=== PATIENT | male | born 1995 | race American Indian/Alaskan Native ===

== ENCOUNTER 2020-12-06 20:24 | Emergency (ER) | payer SELFPAY ==
[2020-12-06 21:24] VITALS: BP 136/86; PULSE 80; RESP 16; TEMP 35.9; O2SAT 97; BMI 19.3
[2020-12-06 21:29] VITALS: BP 133/88; RESP 16; TEMP 36.4; O2SAT 97
--- NOTE | 2020-12-06 21:31 | CTR_ITS ---
PROCEDURE INFORMATION: Exam: CT Head Without Contrast Exam date and time: 12/06/2020 9:31 PM Age: 25 years old Clinical indication: Injury or trauma; Fall; Blunt trauma (contusions or hematomas); Injury details: Skateboarding accident. PT has abrasions to the left side of his face. ; Additional info: Fall with head injury TECHNIQUE: Imaging protocol: Computed tomography of the head without contrast. Radiation optimization: All CT scans at this facility use at least one of these dose optimization techniques: automated exposure control; mA and/or kV adjustment per patient size (includes targeted exams where dose is matched to clinical indication); or iterative reconstruction. COMPARISON: No relevant prior studies available. RADIATION DOSE METRICS: Total DLP (mGy-cm): 799.63 FINDINGS: Brain: Normal. No hemorrhage. Unremarkable white matter. No mass effect. Cerebral ventricles: No ventriculomegaly. Paranasal sinuses: There is mild mucosal thickening seen within the ethmoidal sinuses bilaterally. Mastoid air cells: Visualized mastoid air cells are well aerated. Bones/joints: Unremarkable. No acute fracture. Soft tissues: Soft tissue swelling, laceration and hematoma formation seen within the left parietal scalp. CT/CT head wo con* [id number] IMPRESSION: There are no acute intracranial findings. Radiation Dose CTDIVOL = (mGy): DLP = 799.63 (mGy-cm)
--- NOTE | 2020-12-06 21:37 | W.ED.WOUNDLC ---
HPI - Wound/Laceration General: Chief Complaint: Wound/Laceration Stated Complaint: HEAD INJURY Time Seen by Provider: 12/06/20 21:30 History of Present Illness: HPI narrative: Patient is a 25-year-old male comes to the ED with head injury. Injury occurred just prior to arrival. Patient says he was skateboarding and he fell and hit left side of his head on concrete. Patient was not wearing a helmet. He thinks he had a brief moment of loss of consciousness. He has a laceration to the left parietal region of scalp. He has 2 abrasions to left side of face. Denies any headache, vision changes, neuro symptoms or neck pain. Associated symptoms: Denies chills, fever(s), nausea or vomiting Review of Systems Const: Denies: fever(s), chills or fatigue Eyes: Denies: change in vision or eye discomfort ENMT: Denies: throat pain, odynophagia, nasal discharge or nasal congestion Card: Denies: chest pain, palpitations, edema, swelling of feet/ankles, dyspnea on exertion or orthopnea Resp: Denies: dyspnea, productive cough or non-productive cough GI: Denies: abdominal pain, nausea, vomiting, diarrhea, constipation or hematochezia : Denies: flank pain, difficulty urinating, dysuria or hematuria Musc: Denies: neck pain, back pain or extremity swelling Skin/Breast: Reports: new lesions (Laceration to left parietal region of head. 2 abrasions lft side face); Denies: rash Neuro: Denies: headache(s), numbness in extremities or weakness in extremities Physical Exam Const: COMMON NORMALS: no acute distress, patient oriented x3 and alert GENERAL APPEARANCE: cooperative and comfortable HENMT: COMMON NORMALS: normocephalic HEAD & SCALP: normocephalic, contusion left parietal Head contusion size: 1 cm and laceration left parietal Details of head laceration: Y-shaped, actively bleeding (Minimal) and superficial; not contaminated Head laceration size: 3 cm; no Brown's sign and no raccoon eyes FACE & SINUS: abrasion on the left periorbital (one above eyebrow-superficial, no active bleeding ) and maxilla (superficial, no active bleeding) MOUTH: Normal oral and palatal mucosa present THROAT: posterior oropharynx normal and uvula midline Eye: COMMON NORMALS: Equal, round and reactive pupils present and conjunctivae normal CONJUNCTIVA: Yes conjunctivae normal PUPIL: Yes Equal, round and reactive pupils present Neck/C-Spine: COMMON NORMALS: supple GENERAL: Yes normal visual inspection Resp: COMMON NORMALS: normal respiratory effort, No retractions, No use of accessory muscles and clear to auscultation bilaterally AUSCULTATION: clear to auscultation bilaterally Cardio: COMMON NORMALS: regular rate, regular rhythm, S1 normal heart sound present, S2 normal heart sound present, No gallops present (Cardio), No clicks present (Cardio), No murmurs present (Cardio) and Peripheral pulses 2+ throughout RATE: regular rate RHYTHM: regular rhythm HEART SOUNDS: S1 normal heart sound present and S2 normal heart sound present PERIPHERAL PULSES: Peripheral pulses 2+ throughout GI: COMMON NORMALS: Normal to inspection, nondistended, normoactive bowel sounds present, Soft to palpation, non-tender and no masses PALPATION: Yes Soft to palpation : COMMON NORMALS: Yes no CVA tenderness BLADDER/KIDNEY EXAM: Yes no CVA tenderness Back/Pelvis: COMMON NORMALS: no CVA tenderness Extremity: COMMON NORMALS: normal to inspection Neuro: COMMON NORMALS: patient oriented x3, CN's II-XII intact bilaterally, moves all extremities, no focal motor deficits and no sensory deficits noted SENSORIUM/ORIENTATION: Yes alert SENSORY EXAM: Yes extremities (intact) MOTOR EXAM: 5/5 motor strength present throughout Skin: NARRATIVE SKIN EXAM: See HENNE section of exam for details on scalp laceration. GENERAL SKIN EXAM: dry skin Procedures Laceration Laceration 1: Site: scalp (left parietal) Size (cm): 3 Description: irregular (y shaped) Depth: simple, single layer Local Anesthetic: lidocaine 1% and with epi Amount of anesthesia used (mL): 10 Pre-repair: irrigated extensively (With normal saline.) Skin layer closed with: other (james) Size (cm): other (james) Number of sutures: 10 (james) Technique: simple, interrupted Course Vital Signs: Vital signs: Vital Signs Temperature 97.5 F L 12/06/20 22:20 Pulse Rate 98 12/06/20 22:20 Respiratory Rate 16 12/06/20 22:20 Blood Pressure 133/88 12/06/20 22:20 Pulse Oximetry 97 12/06/20 22:20 MDM - Wound/Laceration MDM Narrative: Medical decision making narrative: Patient is a 25-year-old male comes to the ED with a head injury. Patient was skateboarding and fell hitting left side of head. He has a laceration on left parietal region of scalp and 2 superficial abrasions on left side of face. Patient also has a small contusion on left parietal region of scalp as well. Denies any other symptoms. Denies any concussion symptoms. Neuro exam normal. CT of head, cervical spine and face showed no acute fractures or findings. Laceration site was irrigated extensively by the nurse with normal saline. I then used lidocaine with epinephrine as local anesthetic. 10 james were then placed to close laceration. Patient tolerated procedure well. Patient diagnosed with a laceration of scalp, contusion of head and facial abrasions. He was told to follow-up with his PCP in 7 to 10 days to get james removed. Return to ED precautions given. Patient understood and agree with plan. Imaging Data^: Other CT: Attestation: I personally reviewed and interpreted this imaging study as follows: Radiologist's impression: [employer] [address] [address] Scan Report Signed Patient: Krunal Saez Unit #: [id number] : 1995 Age/Sex: 25 / M ADM Date: 12/06/20 Loc: ER Room/Bed: Attending Dr: Ordering Provider/Ordering MD: Shlomo Burrows Date of Service: 12/06/20 Procedure(s): CT facial bones wo con* [id number] Accession Number(s): [id number] Report Number: [id number] PROCEDURE INFORMATION: Exam: CT Maxillofacial Without Contrast Exam date and time: 12/06/2020 9:36 PM Age: 25 years old Clinical indication: Injury or trauma; Blunt trauma (contusions or hematomas); Orbit/periorbital and maxilla; Patient HX: Fall from skateboard. Abrasions to left temporal and maxillary area. ; Additional info: Skateboard fall with head injury-abrasions to face. TECHNIQUE: Imaging protocol: Computed tomography images of the face without contrast. Radiation optimization: All CT scans at this facility use at least one of these dose optimization techniques: automated exposure control; mA and/or kV adjustment per patient size (includes targeted exams where dose is matched to clinical indication); or iterative reconstruction. COMPARISON: No relevant prior studies available. RADIATION DOSE METRICS: Total DLP (mGy-cm): 744.34 FINDINGS: Orbital cavity: Orbits are normal. Globes are unremarkable. Bones/joints: No acute fracture. Paranasal sinuses: Mucosal thickening is seen within the ethmoidal sinuses bilaterally. Mucosal thickening is seen within the maxillary sinuses bilaterally. Soft tissues: Unremarkable. CT/CT facial bones wo con* [id number] IMPRESSION: There are no acute osseous findings. Radiation Dose CTDIVOL = (mGy): DLP = 744.34 (mGy-cm) Dictated By: James Melgar MD Signed By: James Melgar MD Signed Date/Time: 12/06/202201 DD/ [address] [employer] [address] [address] Scan Report Signed Patient: Krunal Saez Unit #: [id number] : 1995 Age/Sex: 25 / M ADM Date: 12/06/20 Loc: ER Room/Bed: Attending Dr: Ordering Provider/Ordering MD: Shlomo Burrows Date of Service: 12/06/20 Procedure(s): CT cervical spin wo con* [id number] Accession Number(s): [id number] Report Number: [id number] PROCEDURE INFORMATION: Exam: CT Cervical Spine Without Contrast Exam date and time: 12/06/2020 9:36 PM Age: 25 years old Clinical indication: Injury or trauma; Blunt trauma; Patient HX: Fall from skateboard. ; Additional info: Skateboard fall with head injury TECHNIQUE: Imaging protocol: Computed tomography images of the cervical spine without contrast. Radiation optimization: All CT scans at this facility use at least one of these dose optimization techniques: automated exposure control; mA and/or kV adjustment per patient size (includes targeted exams where dose is matched to clinical indication); or iterative reconstruction. COMPARISON: No relevant prior studies available. RADIATION DOSE METRICS: Total DLP (mGy-cm): 508.14 FINDINGS: Bones/joints: No acute fracture. Normal alignment. Discs/Spinal canal/Neural foramina: No significant disc protrusion. No severe spinal canal stenosis. No significant neural foraminal narrowing. Lungs: Lung apices are normal. Soft tissues: Unremarkable. CT/CT cervical spin wo con* [id number] IMPRESSION: No acute findings. Radiation Dose CTDIVOL = (mGy): DLP = 508.14 (mGy-cm) Dictated By: Jaems Melgar MD Signed By: James Melgar MD Signed Date/Time: 12/06/202200 DD/ 99 CT Head: Attestation: I personally reviewed and interpreted this imaging study as follows: Radiologist's impression: [employer] [address] [address] [address] Scan Report Signed Patient: Krunal Saez Unit #: [id number] : 1995 Age/Sex: 25 / M ADM Date: 12/06/20 Loc: ER Room/Bed: Attending Dr: Ordering Provider/Ordering MD: Shlomo Burrows Date of Service: 12/06/20 Procedure(s): CT head wo con* [id number] Accession Number(s): [id number] Report Number: [id number] PROCEDURE INFORMATION: Exam: CT Head Without Contrast Exam date and time: 12/06/2020 9:31 PM Age: 25 years old Clinical indication: Injury or trauma; Fall; Blunt trauma (contusions or hematomas); Injury details: Skateboarding accident. PT has abrasions to the left side of his face. ; Additional info: Fall with head injury TECHNIQUE: Imaging protocol: Computed tomography of the head without contrast. Radiation optimization: All CT scans at this facility use at least one of these dose optimization techniques: automated exposure control; mA and/or kV adjustment per patient size (includes targeted exams where dose is matched to clinical indication); or iterative reconstruction. COMPARISON: No relevant prior studies available. RADIATION DOSE METRICS: Total DLP (mGy-cm): 799.63 FINDINGS: Brain: Normal. No hemorrhage. Unremarkable white matter. No mass effect. Cerebral ventricles: No ventriculomegaly. Paranasal sinuses: There is mild mucosal thickening seen within the ethmoidal sinuses bilaterally. Mastoid air cells: Visualized mastoid air cells are well aerated. Bones/joints: Unremarkable. No acute fracture. Soft tissues: Soft tissue swelling, laceration and hematoma formation seen within the left parietal scalp. CT/CT head wo con* [id number] IMPRESSION: There are no acute intracranial findings. Radiation Dose CTDIVOL = (mGy): DLP = 799.63 (mGy-cm) Dictated By: James Melgar MD Signed By: James Melgar MD Signed Date/Time: 12/06/202199 DD/ 58 Discharge Plan Discharge Patient Disposition: Home Clinical Impression: Laceration of scalp Qualifiers: Encounter type: initial encounter Qualified Code(s): S01.01XA - Laceration without foreign body of scalp, initial encounter Contusion of head Qualifiers: Encounter type: initial encounter Contusion of head detail: scalp Qualified Code(s): S00.03XA - Contusion of scalp, initial encounter Facial abrasion Qualifiers: Encounter type: initial encounter Qualified Code(s): S00.81XA - Abrasion of other part of head, initial encounter Condition: Stable Discharge Orders: Discharge ED (Routine); Ordered 12/06/20 Ordered By: Shlomo Burrows Discharge Diet: Regular Discharge Activity: Resume usual activity Patient Instructions: Scalp Laceration, Staple Care (ED) Activity Restrictions/Additional Instructions: Keep laceration site clean and dry for the next 48 hours. Then after that you can run water over it but do not scrub scalp or laceration. Watch for signs of infection such as redness, warmth, increased tenderness and puslike drainage. If you see the signs of infection return to the ED, urgent care or PCP for reevaluation. call your PCP to schedule a follow-up appointment for reevaluation and suture removal in about 7- 10 days. Continue taking all home meds. Follow discharge plans as discussed. You can return to the ED if symptoms worsen. Coding Level of Care Code ED [employer] for [facility] Exam Comprehensive
--- NOTE | 2020-12-06 21:58 | PC.NURSE ---
ELIZABETH SEALS, BILINGUAL OPERATOR AT BEDSIDE TO DO JOSE AND INJECT LIDOCAINE. PT REFUSED TETANUS VAX, STATED HE HAS HAD ONE IN THE LAST YEAR.
[2020-12-06 22:20] VITALS: BP 133/88; PULSE 98; RESP 16; TEMP 36.4; O2SAT 97
== END 2020-12-06 22:24 | disposition home or self-care (01) ==
PROVIDERS: Emergency Provider Physician Assistant
DX: S01.01XA Laceration without foreign body of scalp, initial encounter (principal); S00.03XA Contusion of scalp, initial encounter; S00.81XA Abrasion of other part of head, initial encounter; V00.131A Fall from skateboard, initial encounter
CPT/HCPCS: 12002; 70450; 70486; 72125; 99283

== ENCOUNTER 2021-02-08 02:06 | Emergency (ER) | payer SELFPAY ==
[2021-02-08] VITALS (8 sets, daily range): BP systolic 120–130; BP diastolic 63–89; PULSE 96–117; RESP 14–28; TEMP 37; O2SAT 96–100; BMI 25.1
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
--- NOTE | 2021-02-08 02:18 | ECG_ITS ---
[facility] Test Date: 2021-02-08 Pat Name: Krunal Saez Department: Room: Gender: Male [employer]: : 1995 Requested By: Clinton Thomas Order Number: [id number] Vonnie MD: Elaine Riley M.D. Measurements Intervals Cammal Rate: 93 P: 68 ID: [id number] QRS: 105 QRSD: 109 T: 44 QT: 354 QTc: 441 Interpretive Statements SINUS RHYTHM POSSIBLE LEFT ATRIAL ENLARGEMENT [-0.1mV P WAVE IN V1/V2] INCOMPLETE RIGHT BUNDLE BRANCH BLOCK [90+ ms QRS DURATION, TERMINAL R IN V1/V2, 40+ ms S IN I/aVL/V4/V5/V6] POSSIBLE RIGHT VENTRICULAR HYPERTROPHY [SOME/ALL OF: PROMINENT R IN V1, LATE TRANSITION, RAD, THAO, SSS] WARNING: DATA QUALITY MAY AFFECT INTERPRETATION No previous ECG available for comparison Electronically Signed On 02-09-2021 16:22:58 CDT by Elaine Riley M.D. [id number]
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
[2021-02-08 02:25] LABS: Basophils % 0.6 %; Eosinophils # 0.1 10^3/uL (0.0-0.8); Eosinophils % 1.5 %; Hematocrit 49.7 % (42.0-52.0); Hemoglobin 16.2 g/dL (11.7-16.6); Lymphocytes # 2.6 10^3/uL (0.8-4.8); Lymphocytes % 53.6 %; Mean Corpuscular HGB Conc 32.6 g/dL (30.0-36.0); Mean Corpuscular Hemoglobin 29.2 pg (28.0-34.0); Mean Corpuscular Volume 89.5 fl (80-94); Mean Platelet Volume 8.7 fL (7.4-10.4); Monocytes # 0.4 10^3/uL (0.2-0.9); Monocytes % 7.4 %; Neutrophils # 1.68 10^3/uL (1.8-7.7); Neutrophils % 35.2 %; Nucleated Red Blood Cells % 0 %; Platelet Count 295 10^3/cmm (130-400); Red Blood Count 5.55 10^6/uL (4.1-5.3); Red Cell Distribution Width 13.4 % (12.1-15.1); White Blood Count 4.8 10^3/uL (4.0-10.0)
[2021-02-08] MEDS: sodium chloride 0.9% 1,000 ML 999 ML IV (02:33)
[2021-02-08] MEDS: HYDROmorphone 1 mg/mL INJ 1 mL 0.5 MG IVP (02:33)
[2021-02-08] MEDS: tetanus-dipt-pertussis 0.5 mL SDV IM (02:33)
[2021-02-08 02:36] LABS: ABG PCO2 42.3 mmHg (35-45); Arterial Blood Gas Hematocrit 50.5 % (42-52); Base Excess ABG -5.3 mmol/L (-2.0-2.0); Blood Gas Allen Test Pos; Blood Gas Operator Identificat HARKR; Blood Gas Sample Site Radial, right; Blood Gas Sample Type Arterial; HCO3 ABG 20.9 mmol/L (22-26); Oxygen Device ROOM AIR
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
[2021-02-08 02:38] LABS: INR 0.94 (0.8-1.2)
[2021-02-08 02:48] LABS: Alanine Aminotransferase 23 U/L (0-41); Albumin Level 4.7 g/dL (3.5-5.2); Alkaline Phosphatase 85 IU/L (40-130); Anion Gap 19.2 (5-19); Aspartate Amino Transferase 47 U/L (0-40); Blood Urea Nitrogen 6 mg/dL (6-20); Calcium 7.6 mg/dL (8.5-10.5); Carbon Dioxide 22 mmol/L (22-29); Chloride 109 mmol/L (98-107); Globulin 2.9 g/dL (1.3-4.6); Glomerular Filtration Rate 137.4 mL/min (90-130); Glucose 92 mg/dL (65-115); Osmolality Calculated 299 mOsm/kg (285-295); Potassium 4.2 mmol/L (3.5-5.1); Sodium 146 mmol/L (136-145); Total Bilirubin 0.2 mg/dL (0.15-1.2); Total Protein 7.6 g/dL (6.6-8.7)
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
[2021-02-08] MEDS: iohexol 300 mg/mL 100 mL Btl IV (02:51)
[2021-02-08 02:55] LABS: Alcohol Level 347 mg/dL (0-10)
[2021-02-08 03:02] LABS: Add Urine Microscopic? YES; Amphetamines Screen Urine Negative (Negative); Barbiturates Screen Urine Negative (Negative); Benzodiazepines Screen Urine Negative (Negative); Bilirubin Urine Neg (Negative); Blood Urine 2+ (Negative); Cocaine Screen Urine Negative (Negative); Glucose Urine UA Norm (Normal); Ketones Urine Negative (Negative); Leukocyte Esterase Urine Negative (Negative); Nitrate Urine Negative (Negative); Opiate Screen Urine Negative (Negative); PCP Screen Urine Negative (Negative); Protein Urine Neg (Negative); THC Screen Urine Positive (Negative); Urine Appearance Clear (CLEAR); Urine Color Yellow (Yellow); Urobilinogen Urine Norm (Negative); pH Urine 5 (5-7)
[2021-02-08 03:03] LABS: Add Urine Culture? No; Bacteria Urine TRACE /hpf; RBC Urine 0-4 /hpf (0-2); Squamous Epithelial Cell Urine 0-4 /hpf (0-5); WBC Urine 0-4 /hpf (0-5)
[2021-02-08 03:34] LABS: Lactate (Lactic Acid level) 1.4 mmol/L (0.5-2.2)
[2021-02-08] MEDS: fentaNYL 50 mcg/mL INJ 2mL IVP (03:41)
== END 2021-02-08 06:18 | disposition home or self-care (01) ==
PROVIDERS: Nurse Practitioner Family; Emergency Provider Emergency Medicine
DX: S22.42XA Multiple fractures of ribs, left side, initial encounter for closed fracture (principal); M51.26 Other intervertebral disc displacement, lumbar region; F10.920 Alcohol use, unspecified with intoxication, uncomplicated; V09.00XA Pedestrian injured in nontraffic accident involving unspecified motor vehicles, initial encounter
CPT/HCPCS: 36600; 51702; 70450; 71045; 71260; 72125; 73060; 73090; 74177; 80053; 80306; 80307; 81001; 82803; 83605; 85025; 85610; 86850; 86900; 90471; 90715; 93005; 96361; 96374; 96375; 99284; J1170; J3010; J7030; Q9967

== ENCOUNTER → 2022-08-24 10:44 | Outpatient (BNVA) | payer OTHER, SELFPAY | PROVIDERS: Visit Provider Nurse Practitioner Family | DX: M25.532 Pain in left wrist (principal) | CPT/HCPCS: 73110 ==

== ENCOUNTER 2022-12-13 22:19 | Emergency (ER) | payer SELFPAY ==
[2022-12-13 22:24] VITALS: BP 141/97; PULSE 102; RESP 16; TEMP 36.8; O2SAT 96; BMI 23.4
--- NOTE | 2022-12-13 22:55 | W.ED.ALCOHOL ---
HPI - Alcohol General: Chief Complaint: Alcohol Stated Complaint: Alcohol Withdrawal Time Seen by Provider: 12/13/22 22:39 Source: patient Mode of arrival: ambulatory Limitations: no limitations History of Present Illness: Patient is a 27-year-old male who presents to the ED today with complaints of alcohol withdrawal symptoms including anxiety and shakiness. He states he is wanting IV fluids. Patient states he is a longstanding alcoholic drinking a minimum of a 12 pack of beer daily. He states his last drink prior to arrival was several hours ago. Patient states he does not want hospitalization and does not really give me a straight answer when I asked him whether he is interested in an inpatient detox facility program. He denies drug use. States he just wants something for his shakiness at the moment. MD complaint: alcohol withdrawal Last drink: Hours (ago) Chronic alcohol use: Yes Previous visits for alcohol intoxication: Yes Recent trauma: No Associated symptoms: Reports no associated symptoms; Deny nausea, seizure-like activity, syncope or vomiting Treatments prior to arrival: none Review of Systems Const: Denies: fever(s), chills, body aches, fatigue or malaise Eyes: Denies: change in vision, blurry vision, photophobia, floaters or seeing flashes Card: Denies: chest pain, syncope or pre-syncope Resp: Denies: dyspnea GI: Denies: nausea, vomiting or diarrhea Neuro: Denies: headache(s), lack of coordination, difficulty walking, dizziness, confusion, behavioral changes or seizure-like activity Physical Exam Const: COMMON NORMALS: no acute distress, average body habitus, patient oriented x3, alert and well nourished GENERAL APPEARANCE: cooperative and appears older than stated age ORIENTATION/CONSCIOUSNESS: Yes awake, Yes oriented to person, Yes oriented to place and Yes oriented to time HENMT: COMMON NORMALS: normocephalic and atraumatic HEAD & SCALP: normal to inspection, normocephalic and atraumatic Resp: COMMON NORMALS: normal respiratory effort and clear to auscultation bilaterally AUSCULTATION: clear to auscultation bilaterally Cardio: COMMON NORMALS: regular rate and regular rhythm RATE: regular rate RHYTHM: regular rhythm Neuro: REKHA COMA SCALE: document GCS findings [place] coma scale eye opening: Spontaneous [place] coma scale verbal response: Orientated [place] coma scale motor response: Obey commands R[place] coma scale total score: 15 COMMON NORMALS: patient oriented x3 SENSORIUM/ORIENTATION: Yes alert, Yes oriented to person, Yes oriented to place and Yes oriented to time Course Vital Signs: Vital signs: Vital Signs Temperature 98.2 F 12/13/22 22:24 Pulse Rate 84 12/14/22 00:17 Respiratory Rate 18 12/14/22 00:17 Blood Pressure 103/62 12/14/22 00:17 Pulse Oximetry 94 12/14/22 00:17 Oxygen Delivery Me thod Room Air 12/14/22 00:17 MDM - Alcohol Medical Decision Making Patient is articulating and answering all of my questions appropriately. He is walking around in his room as well as up and down the hallway to and from the bathroom. Gait is steady and unassisted. Patient was given IV fluids as well as Ativan. He states he feels better. Basic labs obtained and are non-actionable. Alcohol is 406. Patient is surprisingly functionable at that level most likely a product of significant alcohol tolerance from years of drinking. Patient is not seeking hospitalization. I did drug abuse counselor him extensively on my recommendation for an inpatient treatment facility. He was given the name, address, and phone number of [facility]. He is agreeable to continued alcohol cessation thus I will place him on a Librium taper over the next few days. Lab Data 12/13/22 23:10 12/13/22 23:10 Laboratory Results WBC 6.9 10^3/uL (4.0-10.0) 12/13/22 23:10 RBC 5.28 10^6/uL (4.1-5.3) 12/13/22 23:10 Hgb 15.9 g/dL (11.7-16.6) 12/13/22 23:10 Hct 47.6 % (42.0-52.0) 12/13/22 23:10 MCV 90.2 fl (80-94) 12/13/22 23:10 MCH 30.1 pg (28.0-34.0) 12/13/22 23:10 MCHC 33.4 g/dL (30.0-36.0) 12/13/22 23:10 RDW 12.8 % (12.1-15.1) 12/13/22 23:10 Plt Count 266 10^3/cmm (130-400) 12/13/22 23:10 MPV 8.3 fL (7.4-10.4) 12/13/22 23:10 Neut % (Auto) 64.9 % 12/13/22 23:10 Lymph % (Auto) 26.9 % 12/13/22 23:10 [place] % (Auto) 5.8 % 12/13/22 23:10 Eos % (Auto) 1.6 % 12/13/22 23:10 Baso % (Auto) 0.4 % 12/13/22 23:10 Neut # (Auto) 4.44 10^3/uL (1.8-7.7) 12/13/22 23:10 Lymph # (Auto) 1.8 10^3/uL (0.8-4.8) 12/13/22 23:10 [place] # (Auto) 0.4 10^3/uL (0.2-0.9) 12/13/22 23:10 Eos # (Auto) 0.1 10^3/uL (0.0-0.8) 12/13/22 23:10 Baso # (Auto) 0.0 10^3/uL (0.0-0.1) 12/13/22 23:10 Nucleated RBC % (auto) 0 % 12/13/22 23:10 Nucleated RBCs # 0.0 /100WBC 12/13/22 23:10 Sodium 140 mmol/L (136-145) 12/13/22 23:10 Potassium 3.9 mmol/L (3.5-5.1) 12/13/22 23:10 Chloride 102 mmol/L (98-107) 12/13/22 23:10 Carbon Dioxide 23 mmol/L (22-29) 12/13/22 23:10 Anion Gap 18.9 (5-19) 12/13/22 23:10 BUN 5 mg/dL (6-20) L 12/13/22 23:10 Creatinine 0.7 mg/dL (0.7-1.2) 12/13/22 23:10 GFR Calculation 136.3 mL/min (90-130) H 12/13/22 23:10 Glucose 99 mg/dL (65-115) 12/13/22 23:10 Calculated Osmolality 287 mOsm/kg (285-295) 12/13/22 23:10 Calcium 8.6 mg/dL (8.5-10.5) 12/13/22 23:10 Total Bilirubin 0.2 mg/dL (0.15-1.2) 12/13/22 23:10 AST 23 U/L (0-40) 12/13/22 23:10 ALT 16 U/L (0-41) 12/13/22 23:10 Alkaline Phosphatase 73 U/L (40-130) 12/13/22 23:10 Total Protein 8.2 g/dL (6.6-8.7) 12/13/22 23:10 Albumin 4.8 g/dL (3.5-5.2) 12/13/22 23:10 Globulin 3.4 g/dL (1.3-4.6) 12/13/22 23:10 Ethyl Alcohol 406 mg/dL (0-10) H* 12/13/22 23:10 Discharge Plan Discharge Patient Disposition: Home Clinical Impression: Chronic alcohol abuse Alcoholic intoxication Qualifiers: Complication of substance-induced condition: uncomplicated Qualified Code(s): F10.920 - Alcohol use, unspecified with intoxication, uncomplicated Condition: Stable Prescriptions: New chlordiazepoxide HCl 25 mg capsule See Rx Instructions .ROUTE .COMPLEX Qty: 27 0RF Rx Instructions: Take 4 tabs q 6 hours on day 1. Take 2 tabs q 8 hours on day 2. Take 2 tabs q 12 hours on day 3. Take one tab daily on day 4. No Action ibuprofen 800 mg tablet 800 mg PO TID PRN (Reason: pain) 7 Days Qty: 21 0RF Discharge Orders: Discharge ED (Routine); Ordered 12/14/22 Ordered By: Cecily Wu Patient Instructions: Alcohol Intoxication (DC), Abuse of Alcohol (DC), Alcohol Withdrawal (DC) Activity Restrictions/Additional Instructions: As we discussed I recommend you contact [facility] located at [address] [place] [address]. Phone number is [phone] tomorrow morning and inquire about their inpatient alcohol rehabilitation program. I have given you a prescription for a medication stepdown regimen to help you with withdrawal symptoms so you can continue to abstain from alcohol. Do not drink alcohol while taking this medication. 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
[2022-12-13 23:18] LABS: Basophils % 0.4 %; Eosinophils # 0.1 10^3/uL (0.0-0.8); Eosinophils % 1.6 %; Hematocrit 47.6 % (42.0-52.0); Hemoglobin 15.9 g/dL (11.7-16.6); Lymphocytes # 1.8 10^3/uL (0.8-4.8); Lymphocytes % 26.9 %; Mean Corpuscular HGB Conc 33.4 g/dL (30.0-36.0); Mean Corpuscular Hemoglobin 30.1 pg (28.0-34.0); Mean Corpuscular Volume 90.2 fl (80-94); Mean Platelet Volume 8.3 fL (7.4-10.4); Monocytes # 0.4 10^3/uL (0.2-0.9); Monocytes % 5.8 %; Neutrophils # 4.44 10^3/uL (1.8-7.7); Neutrophils % 64.9 %; Nucleated Red Blood Cells % 0 %; Platelet Count 266 10^3/cmm (130-400); Red Blood Count 5.28 10^6/uL (4.1-5.3); Red Cell Distribution Width 12.8 % (12.1-15.1); White Blood Count 6.9 10^3/uL (4.0-10.0)
[2022-12-13] MEDS: sodium chloride 0.9% 1,000 ML 999 ML IV (23:18)
[2022-12-13] MEDS: LORazepam 2 mg/mL INJ 1 mL IVP (23:18)
[2022-12-13 23:32] LABS: Alanine Aminotransferase 16 U/L (0-41); Albumin Level 4.8 g/dL (3.5-5.2); Alkaline Phosphatase 73 U/L (40-130); Anion Gap 18.9 (5-19); Aspartate Amino Transferase 23 U/L (0-40); Blood Urea Nitrogen 5 mg/dL (6-20); Calcium 8.6 mg/dL (8.5-10.5); Carbon Dioxide 23 mmol/L (22-29); Chloride 102 mmol/L (98-107); Globulin 3.4 g/dL (1.3-4.6); Glomerular Filtration Rate 136.3 mL/min (90-130); Glucose 99 mg/dL (65-115); Osmolality Calculated 287 mOsm/kg (285-295); Potassium 3.9 mmol/L (3.5-5.1); Sodium 140 mmol/L (136-145); Total Bilirubin 0.2 mg/dL (0.15-1.2); Total Protein 8.2 g/dL (6.6-8.7)
[2022-12-13 23:38] LABS: Alcohol Level 406 mg/dL (0-10)
[2022-12-14 00:17] VITALS: BP 103/62; PULSE 84; RESP 18; O2SAT 94
--- NOTE | 2022-12-31 15:17 | DCPLANNER ---
late entry - patient called due to no primary care physician - no answer at this time.
== END 2022-12-14 01:08 | disposition home or self-care (01) ==
PROVIDERS: Emergency Provider Physician Assistant
DX: F10.129 Alcohol abuse with intoxication, unspecified (principal); Y90.8 Blood alcohol level of 240 mg/100 ml or more
CPT/HCPCS: 36415; 80053; 80307; 85025; 96374; 99284; J2060; J7030

== ENCOUNTER 2023-01-03 15:41 | Emergency (ER) | payer SELFPAY ==
[2023-01-03 15:54] VITALS: BP 167/114; PULSE 68; RESP 18; TEMP 37; O2SAT 99; BMI 27.3
[2023-01-03] MEDS: ondansetron 2 mg/ML SDV 2 mL 4 MG IVP (16:34)
[2023-01-03] MEDS: sodium chloride 0.9% 1,000 ML 999 ML IV ×2 (16:40→20:28)
--- NOTE | 2023-01-03 16:41 | PC.NURSE ---
PT IS CHANGED OUT INTO GREEN SCRUBS WITH CLOTHES LOCKED IN BIN.
[2023-01-03 16:52] LABS: Basophils # 0.1 10^3/uL (0.0-0.1); Eosinophils % 0.5 %; Hematocrit 51.2 % (42.0-52.0); Hemoglobin 17.1 g/dL (11.7-16.6); Lymphocytes # 1.5 10^3/uL (0.8-4.8); Mean Corpuscular HGB Conc 33.4 g/dL (30.0-36.0); Mean Corpuscular Hemoglobin 30.1 pg (28.0-34.0); Mean Platelet Volume 8.6 fL (7.4-10.4); Monocytes # 0.4 10^3/uL (0.2-0.9); Monocytes % 7.1 %; Neutrophils # 3.77 10^3/uL (1.8-7.7); Neutrophils % 65.2 %; Nucleated Red Blood Cells % 0 %; Platelet Count 262 10^3/cmm (130-400); Red Blood Count 5.69 10^6/uL (4.1-5.3); Red Cell Distribution Width 13.2 % (12.1-15.1); White Blood Count 5.8 10^3/uL (4.0-10.0)
[2023-01-03 16:57] LABS: Bilirubin Urine Neg (Negative); Blood Urine 2+ (Negative); Glucose Urine UA Norm (Normal); Ketones Urine Negative (Negative); Leukocyte Esterase Urine Negative (Negative); Nitrate Urine Negative (Negative); Protein Urine 2+ (Negative); Specific Gravity, Urine 1.005 (1.005-1.030); Urine Appearance Clear (CLEAR); Urine Color Straw (Yellow); Urobilinogen Urine Norm (Negative); pH Urine 5 (5-7)
[2023-01-03 16:58] LABS: Add Urine Microscopic? YES
[2023-01-03 17:05] LABS: Add Urine Culture? No; Bacteria Urine TRACE /hpf; RBC Urine RARE /hpf (0-2); Transitional Epi Cells Urine 0-4 /hpf
[2023-01-03 17:06] LABS: Amphetamines Screen Urine Negative (Negative); Barbiturates Screen Urine Negative (Negative); Benzodiazepines Screen Urine Positive (Negative); Cocaine Screen Urine Negative (Negative); Opiate Screen Urine Negative (Negative); PCP Screen Urine Negative (Negative); THC Screen Urine Positive (Negative)
[2023-01-03 17:10] LABS: Ammonia 30 umol/L (16-60)
[2023-01-03] MEDS: LORazepam 2 mg/mL INJ 1 mL 1 MG IVP (17:10)
[2023-01-03 17:11] LABS: Lactic Sepsis W/Reflex 3.4 mmol/L (0.5-2.2)
[2023-01-03 17:24] LABS: Alanine Aminotransferase 49 U/L (0-41); Albumin Level 5.1 g/dL (3.5-5.2); Alkaline Phosphatase 96 U/L (40-130); Aspartate Amino Transferase 100 U/L (0-40); Blood Urea Nitrogen 7 mg/dL (6-20); Calcium 8.8 mg/dL (8.5-10.5); Carbon Dioxide 21 mmol/L (22-29); Chloride 91 mmol/L (98-107); Globulin 3.6 g/dL (1.3-4.6); Glomerular Filtration Rate 136.3 mL/min (90-130); Glucose 96 mg/dL (65-115); Lipase 32 U/L (13-60); Magnesium 2.1 mg/dL (1.7-2.3); Osmolality Calculated 268 mOsm/kg (285-295); Sodium 130 mmol/L (136-145); Thyroid Stimulating Hormone 1.01 uIU/mL (0.27-4.20); Total Bilirubin 0.8 mg/dL (0.15-1.2); Total Protein 8.7 g/dL (6.6-8.7)
[2023-01-03 17:27] LABS: Alcohol Level 375 mg/dL (0-10)
[2023-01-03 17:35] LABS: Reflex Lactate Order REFLEX LACTIC ORDERD
--- NOTE | 2023-01-03 18:12 | PC.NURSE ---
PT RESTING IN BED, CALM, BREATHING IS NON LABORED.
--- NOTE | 2023-01-03 18:54 | PC.NURSE ---
PT IS SLEEPING IN BED, PSA OUTSIDE ROOM
--- NOTE | 2023-01-03 19:00 | W.ED.ALCOHOL ---
HPI - Alcohol General: Chief Complaint: Alcohol Stated Complaint: MHE Time Seen by Provider: 01/03/23 15:47 History of Present Illness: This patient is a 27 year old presenting with alcohol withdrawal . He says that he has been drinking steadily until a hour before he came in. He has been vomiting and having stomach pain but can't really say how long that has been going on. He drinks daily - he says 10 beers a day. He says that he has had DTs from withdrawal before - but no seizures. He gets shaky and hallucinates. He doesn't answer when asked if he is suicidal. He says he is just tired. He has been here a few times recently for alcohol abuse. He was sent home with [facility] on one visit and had been given information for [facility]. He is pretty intoxicated and is not a good historian at this time. Physical Exam Const: COMMON NORMALS: alert GENERAL APPEARANCE: cooperative and comfortable ORIENTATION/CONSCIOUSNESS: Yes Other orientation findings (intoxicated) HENMT: HEAD & SCALP: normal to inspection FACE & SINUS: normal facial exam Eye: GENERAL EYE: appearance normal, both eyes and all related structures Neck/C-Spine: COMMON NORMALS: supple, no meningeal signs and no JVD Chest: COMMONS NORMALS: normal inspection of the chest Resp: COMMON NORMALS: normal respiratory effort, No use of accessory muscles and clear to auscultation bilaterally AUSCULTATION: clear to auscultation bilaterally Cardio: COMMON NORMALS: no JVD, regular rate, regular rhythm and No murmurs present (Cardio) RATE: regular rate RHYTHM: regular rhythm GI: PALPATION: Yes Tenderness to palpation present (GI) (epigastric) Details: RUQ Back/Pelvis: COMMON NORMALS: thoracic and lumbar spine normal to inspection Extremity: COMMON NORMALS: normal to inspection Neuro: COMMON NORMALS: moves all extremities, no focal motor deficits and no sensory deficits noted SENSORIUM/ORIENTATION: Yes alert MENINGEAL SIGNS: Yes no meningeal signs Skin: COMMON NORMALS: no rashes or lesions noted and turgor normal GENERAL SKIN EXAM: no rashes or lesions noted and turgor normal Course Vital Signs: Vital signs: Vital Signs Temperature 98.6 F 01/03/23 15:54 Pulse Rate 69 01/03/23 19:52 Respiratory Rate 16 01/03/23 19:52 Blood Pressure 108/54 01/03/23 19:52 Pulse Oximetry 98 01/03/23 19:52 Oxygen Delivery Me thod Room Air 01/03/23 15:54 MDM - Alcohol Medical Decision Making Alcohol intoxication. Once patient was more sober, he declined admission and denies SI or HI. He says that he needs to be able to go to work so can't stay. He does admit to having issues with anxiety. We talked again about outpatient management of alcohol abuse and he is aware of resources. He tried the librium he was given before but it made him too sleepy at work. I will give him gabapentin this time and he will try to get in for counseling or in with support groups such as AA. Lab Data 01/03/23 16:31 01/03/23 16:31 Laboratory Results WBC 5.8 10^3/uL (4.0-10.0) 01/03/23 16:31 RBC 5.69 10^6/uL (4.1-5.3) H 01/03/23 16:31 Hgb 17.1 g/dL (11.7-16.6) H 01/03/23 16:31 Hct 51.2 % (42.0-52.0) 01/03/23 16:31 MCV 90.0 fl (80-94) 01/03/23 16:31 MCH 30.1 pg (28.0-34.0) 01/03/23 16:31 MCHC 33.4 g/dL (30.0-36.0) 01/03/23 16:31 RDW 13.2 % (12.1-15.1) 01/03/23 16:31 Plt Count 262 10^3/cmm (130-400) 01/03/23 16:31 MPV 8.6 fL (7.4-10.4) 01/03/23 16:31 Neut % (Auto) 65.2 % 01/03/23 16:31 Lymph % (Auto) 26.0 % 01/03/23 16:31 [place] % (Auto) 7.1 % 01/03/23 16:31 Eos % (Auto) 0.5 % 01/03/23 16:31 Baso % (Auto) 1.0 % 01/03/23 16:31 Neut # (Auto) 3.77 10^3/uL (1.8-7.7) 01/03/23 16:31 Lymph # (Auto) 1.5 10^3/uL (0.8-4.8) 01/03/23 16:31 [place] # (Auto) 0.4 10^3/uL (0.2-0.9) 01/03/23 16:31 Eos # (Auto) 0.0 10^3/uL (0.0-0.8) 01/03/23 16:31 Baso # (Auto) 0.1 10^3/uL (0.0-0.1) 01/03/23 16:31 Nucleated RBC % (auto) 0 % 01/03/23 16:31 Nucleated RBCs # 0.0 /100WBC 01/03/23 16:31 PT 12.40 SECONDS (12.1-14.9) 01/03/23 16:31 INR 0.90 (0.8-1.2) 01/03/23 16:31 Sodium 130 mmol/L (136-145) L 01/03/23 16:31 Potassium 4.0 mmol/L (3.5-5.1) 01/03/23 16:31 Chloride 91 mmol/L (98-107) L 01/03/23 16:31 Carbon Dioxide 21 mmol/L (22-29) L 01/03/23 16:31 Anion Gap 22.0 (5-19) H 01/03/23 16:31 BUN 7 mg/dL (6-20) 01/03/23 16:31 Creatinine 0.7 mg/dL (0.7-1.2) 01/03/23 16:31 GFR Calculation 136.3 mL/min (90-130) H 01/03/23 16:31 Glucose 96 mg/dL (65-115) 01/03/23 16:31 Calculated Osmolality 268 mOsm/kg (285-295) L 01/03/23 16:31 Lactic Acid 3.4 mmol/L (0.5-2.2) H 01/03/23 16:31 Lactic Acid (Sepsis) 2.7 mmol/L (0.5-2.2) H 01/03/23 19:12 Calcium 8.8 mg/dL (8.5-10.5) 01/03/23 16:31 Magnesium 2.1 mg/dL (1.7-2.3) 01/03/23 16:31 Total Bilirubin 0.8 mg/dL (0.15-1.2) 01/03/23 16:31 AST 100 U/L (0-40) H 01/03/23 16:31 ALT 49 U/L (0-41) H 01/03/23 16:31 Alkaline Phosphatase 96 U/L (40-130) 01/03/23 16:31 Ammonia 30 umol/L (16-60) 01/03/23 16:31 Total Protein 8.7 g/dL (6.6-8.7) 01/03/23 16:31 Albumin 5.1 g/dL (3.5-5.2) 01/03/23 16:31 Globulin 3.6 g/dL (1.3-4.6) 01/03/23 16:31 Lipase 32 U/L (13-60) 01/03/23 16:31 TSH 1.01 uIU/mL (0.27-4.20) 01/03/23 16:31 Urine Color Straw (Yellow) 01/03/23 16:18 Urine Appearance Clear (CLEAR) 01/03/23 16:18 Urine pH 5 (5-7) 01/03/23 16:18 Ur Specific [place] 1.005 (1.005-1.030) 01/03/23 16:18 Urine Protein 2+ (Negative) H 01/03/23 16:18 Urine Glucose (UA) Norm (Normal) 01/03/23 16:18 Urine Ketones Negative (Negative) 01/03/23 16:18 Urine Blood 2+ (Negative) H 01/03/23 16:18 Urine Nitrate Negative (Negative) 01/03/23 16:18 Urine Bilirubin Neg (Negative) 01/03/23 16:18 Urine Urobilinogen Norm mg/dL (Negative) 01/03/23 16:18 Ur Leukocyte Esterase Negative (Negative) 01/03/23 16:18 Urine RBC Rare /hpf (0-2) 01/03/23 16:18 Urine WBC None /hpf (0-5) 01/03/23 16:18 Ur Squamous Epith Cells None /hpf (0-5) 01/03/23 16:18 Ur Transition Epith Cell 0-4 /hpf 01/03/23 16:18 Amorphous Sediment Not Reportable 01/03/23 16:18 Urine Bacteria Trace /hpf (NONE) 01/03/23 16:18 Urine Opiates Screen Negative ng/mL (Negative) 01/03/23 16:18 Ur Barbiturates Screen Negative ng/mL (Negative) 01/03/23 16:18 Ur Phencyclidine Scrn Negative ng/mL (Negative) 01/03/23 16:18 Ur Amphetamines Screen Negative ng/mL (Negative) 01/03/23 16:18 U Benzodiazepines Scrn Positive ng/mL (Negative) H 01/03/23 16:18 Urine Cocaine Screen Negative ng/mL (Negative) 01/03/23 16:18 U Marijuana (THC) Screen Positive ng/mL (Negative) H 01/03/23 16:18 Ethyl Alcohol 375 mg/dL (0-10) H* 01/03/23 16:31 Discharge Plan Discharge Patient Disposition: Home Clinical Impression: Alcoholic intoxication, Anxiety, Nausea Condition: Stable Prescriptions: New gabapentin 300 mg capsule See Rx Instructions .ROUTE .COMPLEX Qty: 20 0RF Rx Instructions: 300 mg capsules - three caps three times daily x3 days, then two caps three times daily x2 days, then one cap three times daily x2 days. ondansetron 4 mg tablet,disintegrating 4 mg PO Q6H PRN (Reason: nausea and vomiting) Qty: 10 0RF Discharge Orders: Discharge ED (Routine); Ordered 01/03/23 Ordered By: Lily Azevedo Patient Instructions: Opioid Safety, Pain Management Coding Level of Care Code ED [employer] Project Manager for Mague Jackson
[2023-01-03 19:43] LABS: Lactic Acid level (Lactate) 2.7 mmol/L (0.5-2.2)
[2023-01-03 19:52] VITALS: BP 108/54; PULSE 69; RESP 16; O2SAT 98
--- NOTE | 2023-01-03 19:52 | PC.NURSE ---
PT AWOKE FOR VITALS CHECK. VITALS TAKEN AND CHARTED. PT CALM, STATES HE FEELS KIND OF ANXIOUS, DENIES N/V
--- NOTE | 2023-01-03 21:55 | PC.NURSE ---
PT ASLEEP IN BED, PSA OUTSIDE. PT STATES HE IS FEELING BETTER
== END 2023-01-03 22:47 | disposition home or self-care (01) ==
PROVIDERS: Emergency Provider Emergency Medicine
DX: F10.129 Alcohol abuse with intoxication, unspecified (principal); F41.9 Anxiety disorder, unspecified; R11.0 Nausea
CPT/HCPCS: 36415; 80053; 80306; 80307; 81001; 82140; 83605; 83690; 83735; 84443; 85025; 85610; 96361; 96374; 96375; 99284; J2060; J2405; J7030